=== PATIENT | female | born 1985 | race Caucasian/White ===

== ENCOUNTER 2017-02-04 01:10 | Emergency (ER) | payer MEDICAID ==
[2017-02-04 01:11] VITALS: BMI 36.8
[2017-02-04] MEDS ORDERED: Sodium Chloride 0.9% 1,000 ML IV ONE (01:56)
--- NOTE | 2017-02-04 02:11 | C.PDOC ---
History Of Present Illness A 31 year old female presents to the emergency room with complaints of a headache since yesterday. Patient reports a history of Migraine headaches after being diagnosed by her neurologist, Dr. Artis. Patient states that she has taken Topamax in the past but currently uses blood pressure medications to control the migraines. Patient reports that the headaches became worse today, but Maxalt (3 tablets), Fiorcet, Aspirin, Tylenol, and Motrin were unable to provide relief. Patient notes her last headache occurred 3 weeks ago. Patient notes light sensitivity and nausea. Patient denies numbness, weakness, fever, vomiting, ear pain, throat pain, or any other complaints. Time Seen by Provider: 02/04/17 01:37 Chief Complaint (Nursing): Headache History Per: Patient History/Exam Limitations: no limitations Onset/Duration Of Symptoms: Days (1) Current Symptoms Are (Timing): Still Present Severity: Mild Quality: "Pain" Preceeding Symptoms: Known Migraine Symptoms Associated Symptoms: Nausea, Other (Light sensitivity). denies: Vomiting Recent travel outside of the [place]: No Past Medical History Reviewed: Historical Data, Nursing Documentation, Vital Signs Vital Signs: Last Vital Signs Temp 98 F 02/04/17 01:30 Pulse 87 02/04/17 01:30 Resp 20 02/04/17 01:30 BP 131/81 02/04/17 01:30 Pulse Ox 99 02/04/17 03:17 - Medical History PMH: Back Problems, HTN, Kidney Stones (kidney stent), Migraine - [facility] Procedures CLOSURE SKIN & SUBCUTANEOUS NEC (03/30/15) MONITORING NOS (05/15/15) INJECT/INFUSE NEC (01/02/15) MANUAL ASSIST DELIV NEC (05/15/15) Family History: States: No Known Family Hx - Social History Hx Tobacco Use: Yes Hx Alcohol Use: Yes Hx Substance Use: No - Immunization History Hx Tetanus Toxoid Vaccination: No Hx Influenza Vaccination: No Hx Pneumococcal Vaccination: No Review Of Systems Constitutional: Negative for: Fever Eyes: Positive for: Other (Light sensitivity) ENT: Negative for: Ear Pain, Throat Pain Gastrointestinal: Positive for: Nausea. Negative for: Vomiting Neurological: Positive for: Headache. Negative for: Weakness, Numbness Physical Exam - Physical Exam Appears: Well, Non-toxic Skin: Normal Color, Warm, Dry Head: Atraumatic, Normacephalic Eye(s): bilateral: Normal Inspection, PERRL, EOMI Ear(s): Bilateral: Normal Oral Mucosa: Moist Neck: Normal ROM, Supple Cardiovascular: Rhythm Regular Respiratory: Normal Breath Sounds, No Rales, No Rhonchi, No Wheezing Gastrointestinal/Abdominal: Soft, No Tenderness, No Guarding, No Rebound Extremity: Normal ROM, No Tenderness Neurological/Psych: Oriented x3, Normal Speech, Normal Cognition, Normal Cranial Nerves, Cerebellar Signs, Normal Motor, Normal Sensation ED Course And Treatment O2 Sat by Pulse Oximetry: 99 Medical Decision Making Medical Decision Making: pt resting comfortably. easily aroused. sts headache has decreased from 10/10 to 5/10 after toradol and reglan. will d/c patient home with recommendations to f/u with neurologist, and to keep hedaache diary. Disposition - Disposition Disposition: HOME/ ROUTINE Disposition Time: 04:49 Condition: IMPROVED Additional Instructions: Follow up with PMD and /or neurologist. Take medicatins as prescribed. Return to ER for any worsening symptoms. Instructions: Migraine Headache (ED) Forms: General Discharge Instructions - Clinical Impression Clinical Impression: Migraine - Scribe Statement The provider has reviewed the documentation as recorded by the Scribramos Thompson All medical record entries made by the Ollieibramos were at my direction and personally dictated by me. I have reviewed the chart and agree that the record accurately reflects my personal performance of the history, physical exam, medical decision making, and the department course for this patient. I have also personally directed, reviewed, and agree with the discharge instructions and disposition.
[2017-02-04] MEDS ORDERED: Sodium Chloride 0.9% 1,000 ML ONE (02:46)
--- NOTE | 2017-02-04 04:09 | CT ---
EXAM: CT Head Without Intravenous Contrast CLINICAL HISTORY: 31 years old, female; Pain; Headache; Headache not specified TECHNIQUE: Axial computed tomography images of the head/brain without intravenous contrast. This CT exam was performed using one or more of the following dose reduction techniques: automated exposure control, adjustment of the mA and/or kV according to patient size, and/or use of iterative reconstruction technique. COMPARISON: No relevant prior studies available. FINDINGS: Brain: Unremarkable. No hemorrhage. No significant white matter disease. No edema. Ventricles: Unremarkable. No ventriculomegaly. Bones/joints: Unremarkable. No acute fracture. Soft tissues: Unremarkable. Sinuses: Unremarkable as visualized. No acute sinusitis. Mastoid air cells: Unremarkable as visualized. No mastoid effusion. IMPRESSION: Normal head/brain CT.
[2017-02-04 05:03] VITALS: BP 114/79; PULSE 72; RESP 18; TEMP 97.7; O2SAT 100
== END 2017-02-04 05:02 | disposition home or self-care (01) ==
LOC: C.ER 01:10
DX: G43.909 Migraine, unspecified, not intractable, without status migrainosus (principal); I10 Essential (primary) hypertension
CPT/HCPCS: 70450; 96374; 99285; J1885; J2765; J7040

== ENCOUNTER 2018-12-25 05:25 | Emergency (ER) | payer MEDICAID, OTHER ==
[2018-12-25 05:25] VITALS: BMI 36.8
--- NOTE | 2018-12-25 06:02 | C.PDOC ---
History Of Present Illness 33 year old female with PMHx of migraine presents to the ED c/o 2 day history of gradual onset headache similar to prior migraine headaches. Patient reports some nausea with no vomiting, she is s/p gastric sleeve surgery 1 year ago. Patient states she took percocet and 3-4 rizatriptan tablets yesterday with no relief, took 3 500 mg Tylenol few hours [employer]. Patient no longer seeing her Neurologist due to insurance issues. Patient denies injury, fever, fall, trauma, neck pain, visual changes, CP, SOB, dizziness, weakness, numbness. sts she is unable to take nsaids due to her gastric sleeve surgery. <Janki Sweeney - Last Filed: 12/25/18 07:03> History Per: Patient History/Exam Limitations: no limitations Onset/Duration Of Symptoms: Days (2) Current Symptoms Are (Timing): Still Present Quality: "Pain" Preceeding Symptoms: Known Migraine Symptoms Associated Symptoms: Nausea Recent travel outside of the [place]: No Additional History Per: Patient <Janki Sweeney - Last Filed: 12/25/18 07:03> <Joel Harris - Last Filed: 12/25/18 10:32> Time Seen by Provider: 12/25/18 05:42 Chief Complaint (Nursing): Headache Past Medical History Reviewed: Historical Data, Nursing Documentation, Vital Signs Vital Signs: Last Vital Signs Temp 98.8 F 12/25/18 05:32 Pulse 80 12/25/18 05:32 Resp 14 12/25/18 05:32 BP 130/80 12/25/18 05:32 Pulse Ox 100 12/25/18 05:32 - Medical History PMH: Back Problems, HTN, Kidney Stones (kidney stent), Migraine Other Surgeries: gastric sleeve 1 year ago - [facility] Procedures CLOSURE SKIN & SUBCUTANEOUS NEC (03/30/15) MONITORING NOS (05/15/15) INJECT/INFUSE NEC (01/02/15) MANUAL ASSIST DELIV NEC (05/15/15) Family History: States: Unknown Family Hx - Social History Hx Tobacco Use: Yes Hx Alcohol Use: Yes Hx Substance Use: No - Immunization History Hx Tetanus Toxoid Vaccination: No Hx Influenza Vaccination: No Hx Pneumococcal Vaccination: No <Janki Sweeney - Last Filed: 12/25/18 07:03> Vital Signs: Last Vital Signs Temp 98.0 F 12/25/18 08:46 Pulse 72 12/25/18 08:46 Resp 16 12/25/18 08:46 BP 144/99 H 12/25/18 08:46 Pulse Ox 98 12/25/18 08:46 - [facility] Procedures CLOSURE SKIN & SUBCUTANEOUS NEC (03/30/15) MONITORING NOS (05/15/15) INJECT/INFUSE NEC (01/02/15) MANUAL ASSIST DELIV NEC (05/15/15) <Joel Harris - Last Filed: 12/25/18 10:32> Review Of Systems Constitutional: Negative for: Fever, Chills Eyes: Negative for: Vision Change Cardiovascular: Negative for: Chest Pain Respiratory: Negative for: Cough, Shortness of Breath Gastrointestinal: Positive for: Nausea. Negative for: Vomiting, Abdominal Pain Skin: Negative for: Rash Neurological: Positive for: Headache. Negative for: Weakness, Numbness, Dizziness <Janki Sweeney - Last Filed: 12/25/18 07:03> Physical Exam - Physical Exam Appears: Non-toxic, In Acute Distress (due to pain) Skin: Normal Color, Warm, Dry Head: Atraumatic, Normacephalic Eye(s): bilateral: Normal Inspection, PERRL, EOMI Neck: Normal ROM, No Midline Cervical Tenderness, Supple, Other (no meningeal signs) Chest: Symmetrical Cardiovascular: Rhythm Regular Respiratory: Normal Breath Sounds, No Rales, No Rhonchi, No Wheezing Gastrointestinal/Abdominal: Soft, No Tenderness, No Guarding, No Rebound Extremity: Normal ROM, No Tenderness, No Swelling Neurological/Psych: Oriented x3, Normal Speech, Normal Cognition Gait: Steady <Janki Sweeney - Last Filed: 12/25/18 07:03> ED Course And Treatment O2 Sat by Pulse Oximetry: 100 (On RA) Pulse Ox Interpretation: Normal <Janki Sweeney - Last Filed: 12/25/18 07:03> Medical Decision Making Medical Decision Making: Plan: * Reglan 10 mg IV * magnesium 2 grams iv [id number] pt reports no change in pain. further medications ordered. will s/o to next team. <Janki Sweeney - Last Filed: 03/04/19 07:03> Medical Decision Makin Received sign out from SULLY Sweeney, pending reassessment and disposition. 0900 Reassessed patient, who is resting comfortably. 1010 On reassessment patient continues to sleep, appears to be resting comfortably in stretcher. Patient is easily arousable, appears to be in no acute distress. Paged Dr. Simental, patients PMD, multiple times with no response back. Plan is to discharge patient home. Instructed patient to follow up with her doctor in 1-2 days. <Joel Harris - Last Filed: 12/25/18 10:32> Disposition - Disposition Disposition Time: 07:00 <Janki Sweeney - Last Filed: 12/25/18 07:03> Counseled Patient/Family Regarding: Studies Performed, Diagnosis, Need For Followup - Disposition Disposition Time: : <Joel Harris - Last Filed: 12/25/18 10:32> - Disposition Referrals: Maximino De La Cruz MD [Staff Provider] - Disposition: HOME/ ROUTINE Condition: IMPROVED Instructions: Migraine Headache (DC) Forms: [facility] (Dutch), General Discharge Instructions - Clinical Impression Clinical Impression: Migraine - PA / REINSPECTOR / Resident Statement MD/DO has reviewed & agrees with the documentation as recorded. - Scribe Statement The provider has reviewed the documentation as recorded by the Scribe Pollo Bazan All medical record entries made by the Scribe were at my direction and personally dictated by me. I have reviewed the chart and agree that the record accurately reflects my personal performance of the history, physical exam, medical decision making, and the department course for this patient. I have also personally directed, reviewed, and agree with the discharge instructions and disposition. <Janki Sweeney - Last Filed: 12/25/18 07:03> Physician Patient Turnover Patient Signed Over To: Joel Harris Handoff Comments: re-eval after decadron and depakote. dispo accordingly <Janki Sweeney - Last Filed: 12/25/18 07:03>
[2018-12-25] MEDS ORDERED: Magnesium Sulfate 1 gm in D5W 1 GM/100 ML BAG IVPB ONE ×2 (06:24→06:56)
[2018-12-25] MEDS: Magnesium Sulfate 1 gm in D5W 1 GM/100 ML BAG IVPB SCH ×2 (06:30→07:00)
[2018-12-25] MEDS ORDERED: Dexamethasone 4 mg/1 ml IVP STA (06:57)
[2018-12-25] MEDS ORDERED: Sodium Chloride 0.9% 1,000 ML IV STA (06:57)
[2018-12-25] MEDS ORDERED: Sodium Chloride 0.9% 1,000 ML ONE (07:07)
[2018-12-25 10:54] VITALS: BP 154/96; PULSE 87; RESP 18; TEMP 98.4; O2SAT 97
== END 2018-12-25 11:09 | disposition home or self-care (01) ==
LOC: C.ER 05:25
DX: G43.909 Migraine, unspecified, not intractable, without status migrainosus (principal)
CPT/HCPCS: 81025; 96361; 96365; 96366; 96372; 96375; 99285; J1100; J2765; J3030; J3475; J7030